=== PATIENT | male | born 1960 | race Caucasian/White ===

== ENCOUNTER 2017-07-02 12:03 | Emergency (ER) | payer OTHER ==
[2017-07-02 12:18] VITALS: BP 122/96; PULSE 98; RESP 18; TEMP 97.7; O2SAT 96
--- NOTE | 2017-07-02 12:38 | EDPHY ---
H & P Stated Complaint: Chronic pain pt who wants to kill himself because no one is tx his pain Time Seen by Provider: 07/02/17 12:38 - Personal History Current Tetanus Diphtheria and Acellular Pertussis (TDAP): Yes - Medical/Surgical History Hx Diabetes: Yes Other PMH: diab. peripheral neuropathy. chronic pain. psych - Social History Smoking Status: Never smoked Constitutional: Initial Vital Signs Temperature (C) 36.5 C 07/02/17 12:10 Heart Rate 98 07/02/17 12:10 Respiratory Rate 18 07/02/17 12:10 Blood Pressure 122/96 H 07/02/17 12:10 O2 Sat (%) 96 07/02/17 12:10 O2 Delivery Mode Room Air Allergies/Adverse Reactions: No Known Allergies Allergy (Unverified 07/02/17 12:18) Home Medications: Medication Instructions Recorded Divalproex [Depakote] 250 mg PO 07/02/17 Gabapentin [Neurontin 400 MG (*)] 400 mg PO HS 07/02/17 Hydrochlorothiazide [HCTZ (*)] 25 mg PO DAILY 07/02/17 Insulin Lispro [Humalog] 100 unit SQ 07/02/17 Levothyroxine [Synthroid 100 mcg 100 mcg PO DAILY06 07/02/17 (*)] QUEtiapine FUMARATE [Seroquel 100 100 mg PO 07/02/17 mg (*)] clonazePAM [klonoPIN (*)] 1 mg PO 07/02/17 metFORMIN HCL [Glucophage 500 mg 500 mg PO 07/02/17 (*)] Medical Decision Making ED Course/Re-evaluation: CHIEF COMPLAINT: HISTORY OF PRESENT ILLNESS: must have 4 elements: Location, Quality, Severity , Duration, Timing, Context, Modifying Factors, Associated Signs and Symptoms REVIEW OF SYSTEMS: A 10 point review of systems was performed and is negative with the exception of the elements mentioned in the history of present illness. PHYSICAL EXAM: HR, BP, O2 Sat, RR. Temp noted General Appearance: Alert, well hydrated, appropriate, and non-toxic appearing. Head: Atraumatic without scalp tenderness or obvious injury Eyes: Pupils equal, round, reactive to light and accommodation, EOMI, no trauma , no injection. Ears: Clear bilaterally, no perforation, normal landmarks Nose: Atraumatic, no rhinorrhea, clear. Throat: There is no erythema or exudates, no lesions, normal tonsils, mucus membranes moist. Neck: Supple, 2+ carotid upstroke, nontender, no lymphadenopathy. Respiratory: No retractions, no distress, no wheezes, and no accessory muscle use. Lungs are clear to auscultation bilaterally. Cardiovascular: Regular rate and rhythm, no murmurs, rubs, or gallops. Bilateral carotid, radial, dorsalis pedis, and posterior tibial pulses intact. Good capillary refill all extremities. Gastrointestinal: Abdomen is soft, nontender, non-distended, no masses, no rebound, no guarding, no peritoneal signs. Musculoskeletal: Normal active ROM of all extremities, atraumatic. Neurological: Alert, appropriate, and interactive. The patient has normal DTRs and non-focal cranial nerves, motor, sensory, and cerebellar exam. Skin: No rashes, good turgor, no nodules on palpation. Past medical history: Past surgical history: Family history: Social history: DIAGNOSTICS/PROCEDURES/CRITICAL CARE TIME: DIFFERENTIAL DIAGNOSIS: MEDICAL DECISION MAKING: Departure - Departure Referrals: Joseluis Gaspar MD [Primary Care Provider] - As per Instructions
--- NOTE | 2017-07-02 12:40 | EDPHY ---
H & P Stated Complaint: Chronic pain pt who wants to kill himself because no one is tx his pain Time Seen by Provider: 07/02/17 12:38 - Personal History Current Tetanus Diphtheria and Acellular Pertussis (TDAP): Yes - Medical/Surgical History Hx Diabetes: Yes Other PMH: diab. peripheral neuropathy. chronic pain. psych - Social History Smoking Status: Never smoked Constitutional: Initial Vital Signs Temperature (C) 36.5 C 07/02/17 12:10 Heart Rate 98 07/02/17 12:10 Respiratory Rate 18 07/02/17 12:10 Blood Pressure 122/96 H 07/02/17 12:10 O2 Sat (%) 96 07/02/17 12:10 O2 Delivery Mode Room Air Allergies/Adverse Reactions: No Known Allergies Allergy (Unverified 07/02/17 12:18) Home Medications: Medication Instructions Recorded Divalproex [Depakote] 250 mg PO 07/02/17 Gabapentin [Neurontin 300 MG (*)] 300 mg PO TID #90 cap 07/02/17 Gabapentin [Neurontin 400 MG (*)] 400 mg PO HS 07/02/17 Hydrochlorothiazide [HCTZ (*)] 25 mg PO DAILY 07/02/17 Insulin Lispro [Humalog] 100 unit SQ 07/02/17 Levothyroxine [Synthroid 100 mcg 100 mcg PO DAILY06 07/02/17 (*)] QUEtiapine FUMARATE [Seroquel 100 100 mg PO 07/02/17 mg (*)] clonazePAM [klonoPIN (*)] 1 mg PO 07/02/17 fentaNYL [Duragesic 50 MCG Patch 50 mcg TD Q72H #2 patch 07/02/17 (*)] metFORMIN HCL [Glucophage 500 mg 500 mg PO 07/02/17 (*)] oxyCODONE IR [Oxycodone Ir (*)] 5 - 10 mg PO Q6 PRN #30 tab 07/02/17 Medical Decision Making ED Course/Re-evaluation: CHIEF COMPLAINT: Psychiatric evaluation HISTORY OF PRESENT ILLNESS: The patient is a 57 y/o male with a history of diabetes and chronic pain who stated he wanted to kill himself as no one was taking his pain seriously at the orthopedics office. He states his doctors did not do what they were supposed to do for his pain management and no medications have worked for his pain. The pain is currently everywhere. States he is not suicidal today but thinks he will be in a few weeks if his pain is not controlled better. When his pain is controlled he is not suicidal. He has an appointment with the pain management clinic next week. Denies taking Neurontin in the past. Denies chest pain, abdominal pain, urinary or bowel complaints, fever. REVIEW OF SYSTEMS: A 10 point review of systems was performed and is negative with the exception of the elements mentioned in the history of present illness. PHYSICAL EXAM: General Appearance: Alert, well hydrated, appropriate, and non-toxic appearing. Head: Atraumatic without scalp tenderness or obvious injury Eyes: Pupils equal, round, reactive to light and accommodation, EOMI, no trauma , no injection. Ears: Clear bilaterally, no perforation, normal landmarks Nose: Atraumatic, no rhinorrhea, clear. Throat: There is no erythema or exudates, no lesions, normal tonsils, mucus membranes moist. Neck: Supple, nontender, no lymphadenopathy. Respiratory: No retractions, no distress, no wheezes, and no accessory muscle use. Lungs are clear to auscultation bilaterally. Cardiovascular: Regular rate and rhythm, no murmurs, rubs, or gallops. Bilateral carotid, radial, dorsalis pedis, and posterior tibial pulses intact. Good capillary refill all extremities. Gastrointestinal: Abdomen is soft, nontender, non-distended, no masses, no rebound, no guarding, no peritoneal signs. Musculoskeletal: Normal active ROM of all extremities, atraumatic. Neurological: Alert, appropriate, and interactive. Non-focal neuro. Skin: No rashes, good turgor, no nodules on palpation. Past medical history: Diabetes, peripheral neuropathy, chronic pain, psych Past surgical history: Denies Family history: Denies Social history: at bedside, lives in [facility] DIFFERENTIAL DIAGNOSIS: The differential diagnosis for the patient's depression included but was not limited to functional and major depression, situational depression, medication side effect, drugs, and alcohol abuse. MEDICAL DECISION MAKING: The patient is a 57 y/o male with a history of diabetes and chronic pain who stated he wanted to kill himself as no one was taking his pain seriously at the orthopedics office. Patient is in no acute distress and is hemodynamically stable. He will not need a psychiatric evaluation as he is not suicidal as long as his pain is controlled. Patient has known history of psychiatric disorders and is here for evaluation. Reassessed patient and discussed prescriptions for Fentanyl patches, OxyIR, and Neurontin for his pain. He is not suicidal as long as his pain is controlled. He states if I prescribe him the pain medications for the next week, he will not kill himself. I have advised him to keep his visit with the pain management clinic next week. Return precautions provided; patient is comfortable with this plan. 1400: Consulted with Dr. Smith, the patient's psychiatrist, regarding the patient's symptoms. Departure - Departure Disposition: Home, Routine, Self-Care Clinical Impression: Chronic pain Qualifiers: Chronic pain type: chronic pain syndrome Qualified Code(s): G89.4 - Chronic pain syndrome Condition: Good Instructions: Chronic Pain (ED) Additional Instructions: 1. Use the Fentanyl patch as prescribed. Change it every 72 hours. 2. Take OxyIR as prescribed. 3. Take Neurontin as prescribed. 4. Follow-up with your primary doctor within 72 hours. 5. Return to the Emergency Department for fever, chest pain, shortness of breath , increasing pain or other worsening of condition. Referrals: Joseluis Gaspar MD [Primary Care Provider] - As per Instructions Prescriptions: fentaNYL [Duragesic 50 MCG Patch (*)] 50 mcg TD Q72H #2 patch Gabapentin [Neurontin 300 MG (*)] 300 mg PO TID #90 cap oxyCODONE IR [Oxycodone Ir (*)] 5 - 10 mg PO Q6 PRN #30 tab PRN Reason: Pain, Severe Report Scribed for: Elias Pierre Report Scribed by: Delia Stevens Date of Report: 07/02/17 Time of Report: 12:42
== END 2017-07-02 12:55 | disposition home or self-care (01) ==
DX: G89.4 Chronic pain syndrome (principal); E11.9 Type 2 diabetes mellitus without complications; Z79.4 Long term (current) use of insulin